=== PATIENT | male | born 1965 | race Caucasian/White ===

== ENCOUNTER → 2018-05-18 | Day surgery (SDC) | payer BC ==
[2018-05-17 10:04] VITALS: BMI 28.5
[~2018-05-18] MED LIST: LACTATED RINGERS 1,000 ML IV SCH; LIDOCAINE 1% 20 ML VIAL (10MG/ML) FOR IV START INTRADERMA ONE; LIDOCAINE 1% INJ 10MG/ML (20 ML MDV) ONE; PROPOFOL 10 MG/ML 20 ML VIAL IV ONE
[2018-05-18 11:22] VITALS: TEMP 98.1
--- NOTE | 2018-05-18 12:05 | P.PCN ---
Date of Procedure: 05/18/18 Procedure(s) Performed: BRIEF HISTORY: Patient is a 52-year-old pleasant male, scheduled for an elective colonoscopy as a part of screening for colorectal neoplasia. PROCEDURE PERFORMED: Colonoscopy. PREOPERATIVE DIAGNOSIS: Screening for colon cancer. IV sedation per Anesthesia. PROCEDURE: After informed consent was obtained, the patient, was brought into the endoscopy unit. IV sedation was administered by Anesthesia under continuous monitoring. Digital rectal examination was normal. Initially the Olympus CF- 160 flexible video colonoscope was then inserted in the rectum, gradually advanced into the cecum without any difficulty. Careful examination was performed as the scope was gradually being withdrawn. Ileocecal valve and the appendiceal orifice were visualized and appeared normal. Prep was excellent. Mucosa of the cecum, ascending colon, transverse colon, descending colon, sigmoid colon, and rectum appeared normal. Retroflexion was performed in the rectum and small internal hemorrhoids were seen. The patient tolerated the procedure well. IMPRESSION: Normal-appearing colon from rectum to cecum with no evidence of colorectal neoplasia . RECOMMENDATIONS: Findings of this examination were discussed with the patient as well as his family. He was advised to have a repeat screening colonoscopy in 10 years.
[2018-05-18 12:12] VITALS: RESP 16
[2018-05-18 12:19] VITALS: BP 124/65; PULSE 68
== END | disposition home or self-care (01) ==
LOC: ORWHC2ENDO 10:22
PROVIDERS: ATTEND Internal Medicine Gastroenterology
DX: Z12.11 Encounter for screening for malignant neoplasm of colon (principal); K64.8 Other hemorrhoids; K21.9 Gastro-esophageal reflux disease without esophagitis; Z79.899 Other long term (current) drug therapy
CPT/HCPCS: 45378; J2001; J2704

== ENCOUNTER 2020-11-22 21:18 | Emergency (ER) | payer BC ==
[2020-11-22 22:38] VITALS: RESP 18
--- NOTE | 2020-11-22 23:38 | XR ---
EXAMINATION TYPE: XR chest 2V DATE OF EXAM: 11/22/2020 COMPARISON: NONE HISTORY: Cough TECHNIQUE: 2 views FINDINGS: Heart and mediastinum are normal. Lungs are clear of infiltrate. There is no heart failure. There are no hilar masses. Bony thorax appears intact. IMPRESSION: No active cardiopulmonary disease. Normal heart.
[2020-11-23 00:04] VITALS: BP 149/72; PULSE 75; TEMP 100
--- NOTE | 2020-11-23 00:16 | ED ---
General Adult HPI - General Chief complaint: Shortness of Breath Stated complaint: COVID Source: patient, RN notes reviewed Mode of arrival: ambulatory Limitations: no limitations - History of Present Illness Initial comments: 55-year-old male with a past medical history of GERD, hiatal hernia presents to the emergency room for a chief complaint of shortness of breath. Patient states he developed symptoms of covid 6 days ago. States that 5 day ago he had a positive test. Patient states he has felt fine. His fevers have been getting better. However now when he deep breath he feels it gets to coughing. Coughing a little short of breath. Denies chest pain. Patient has no other complaints at this time including shortness of breath, chest pain, abdominal pain, nausea or vomiting, headache, or visual changes. - Related Data Home Medications Medication Instructions Recorded Confirmed Lansoprazole [Prevacid] 15 mg PO DAILY PRN 05/17/18 05/18/18 Previous Rx's Medication Instructions Recorded Albuterol Inhaler [Ventolin Hfa 2 puff INHALATION RT-QID PRN #1 11/23/20 Inhaler] inhaler Benzonatate [Tessalon Perles] 200 mg PO Q8H PRN #15 capsule 11/23/20 Allergies Allergy/AdvReac Type Severity Reaction Status Date / Time No Known Allergies Allergy Verified 11/22/20 22:39 Review of Systems ROS Statement: Those systems with pertinent positive or pertinent negative responses have been documented in the HPI. ROS Other: All systems not noted in ROS Statement are negative. Past Medical History Past Medical History: GERD/Reflux Additional Past Medical History / Comment(s): hiatal hernia, hx ulcer, History of Any Multi-Drug Resistant Organisms: None Reported Additional Past Surgical History / Comment(s): EGD, rt cataract Past Anesthesia/Blood Transfusion Reactions: Motion Sickness Past Psychological History: No Psychological Hx Reported Smoking Status: Never smoker Past Alcohol Use History: None Reported Past Drug Use History: None Reported - Past Family History Mother Family Medical History: No Reported History General Exam Limitations: no limitations General appearance: alert, in no apparent distress Head exam: Present: atraumatic, normocephalic, normal inspection Eye exam: Present: normal appearance, PERRL, EOMI. Absent: scleral icterus, conjunctival injection, periorbital swelling ENT exam: Present: normal exam, mucous membranes moist Neck exam: Present: normal inspection, full ROM. Absent: tenderness, meningismus, lymphadenopathy Respiratory exam: Present: normal lung sounds bilaterally. Absent: respiratory distress, wheezes, rales, rhonchi, stridor Cardiovascular Exam: Present: regular rate, normal rhythm, normal heart sounds. Absent: systolic murmur, diastolic murmur, rubs, gallop, clicks GI/Abdominal exam: Present: soft, normal bowel sounds. Absent: distended, tenderness, guarding, rebound, rigid Neurological exam: Present: alert Course Vital Signs 11/22/20 11/23/20 22:35 00:03 Temperature 100.9 F H 100 F H Pulse Rate 98 75 Respiratory 18 18 Rate Blood Pressure 169/82 149/72 O2 Sat by Pulse 97 95 Oximetry Medical Decision Making - Medical Decision Making Vitals are stable. Patient is well appearing. Saturations are 95-98%. Lungs are clear on oxygen auscultation. X-ray shows no active cardiopulmonary process. At this time. He'll be discharged from [facility]. He does not qualify for antibodies. He will return here for worsening symptoms. Disposition Clinical Impression: COVID-19 Disposition: HOME SELF-CARE Condition: Good Instructions (If sedation given, give patient instructions): Coronavirus Disease 2019 (COVID-19) Additional Instructions: Alternate motrin and tylenol every 3 hours as needed for fever. Take Tessalon Perles for cough. Use inhaler as needed up to 4 times a day. Please follow up with primary care. Return for any worsening symptoms. Prescriptions: Benzonatate [Tessalon Perles] 200 mg PO Q8H PRN #15 capsule PRN Reason: Cough Albuterol Inhaler [Ventolin Hfa Inhaler] 2 puff INHALATION RT-QID PRN #1 inhaler PRN Reason: Shortness Of Breath Is patient prescribed a controlled substance at d/c from ED?: No Referrals: Agustin Serna MD [Primary Care Provider] - 1-2 days Time of Disposition: 00:14
== END 2020-11-23 00:21 | disposition home or self-care (01) ==
LOC: EC 21:18
DX: U07.1 COVID-19 (principal); K21.9 Gastro-esophageal reflux disease without esophagitis
CPT/HCPCS: 71046; 99284

== ENCOUNTER 2023-08-04 07:47 | Day surgery (SDC) | payer BC ==
[2023-08-02 10:17] VITALS: BMI 30.7
[~2023-08-04 07:47] MED LIST changes: -LACTATED RINGERS 1,000 ML IV SCH; -LIDOCAINE 1% 20 ML VIAL (10MG/ML) FOR IV START INTRADERMA ONE; -LIDOCAINE 1% INJ 10MG/ML (20 ML MDV) ONE; -PROPOFOL 10 MG/ML 20 ML VIAL IV ONE; +SODIUM CHLORIDE 0.9% 1,000 ML IV SCH
[2023-08-04 08:57] VITALS: TEMP 97.7
[2023-08-04] MEDS ORDERED: LIDOCAINE 1% INJ 10MG/ML (20 ML MDV) ONE (09:00)
[2023-08-04] MEDS ORDERED: PROPOFOL 10 MG/ML 20 ML VIAL IV ONE (09:00)
[2023-08-04] MEDS ORDERED: BENZOCAINE SPRAY 1 CAN TOPICAL ONE (09:08)
--- NOTE | 2023-08-04 09:25 | P.PCN ---
Date of Procedure: 08/04/23 Description of Procedure: Indication: Atrial fibrillation Procedure Description: After explaining the procedure to the patient, it's risk and complications, blood pressure, heart rate and O2 saturation were monitored. The throat was sprayed with Cetacaine. Patient received sedation per anesthesia department. The probe was introduced into the esophagus without difficulty. Images were obtained. Following that, the probe was removed. There was no immediate complication. Findings: Left atrial size is mildly dilated, left atrial appendage is normal. Left ventricle size is normal. Mild global hypokinesis was noted. Ejection fraction is 45-50%. Aortic valve, mitral valve, and tricuspid valve are normal. The descending thoracic aorta appears to be normal. Contrast bubble study revealed no shunting across the interatrial septum. A eustachian valve was noted. No pericardial effusion was noted. Doppler: Pulse wave and color Doppler were obtained, revealed mild to moderate mitral with mild tricuspid regurgitation. There was no shunting by color Doppler study. Conclusion: 1. Mildly dilated left atrium with normal appearance of the left atrial appendage 2. Mild global hypokinesis of the left ventricle 3. Mild to moderate mitral with mild tricuspid regurgitation 4. No shunting across the interatrial septum 5. Normal appearance of the descending thoracic aorta PCI: After obtaining SCHUYLER and sedated state synchronized biphasic cardioversion using 150 J was performed with cheondoism of sinus mechanism. There was no immediate complications.
[2023-08-04 11:01] VITALS: BP 100/78; PULSE 51; RESP 18
[2023-08-04 15:41] LABS: African American GFR (CKD) 58 (>60 ml/min/1.73 sqM); Anion Gap 10 mmol/L; Blood Urea Nitrogen 23 mg/dL (9-20); Carbon Dioxide 26 mmol/L (22-30); Chloride 108 mmol/L (98-107); Glucose 99 mg/dL (74-99); Non-African American GFR(CKD) 50 (>60 ml/min/1.73 sqM); Potassium 4.3 mmol/L (3.5-5.1); Sodium 144 mmol/L (137-145)
[2023-08-04] MEDS ORDERED: RIVAROXABAN 20 MG TAB PO SCH (21:00)
[2023-08-04] MEDS ORDERED: METOPROLOL TARTRATE 50 MG TAB PO SCH (21:00)
== END 2023-08-04 11:31 | disposition home or self-care (01) ==
LOC: OR 07:47
PROVIDERS: ATTEND Internal Medicine Interventional Cardiology
DX: I08.1 Rheumatic disorders of both mitral and tricuspid valves (principal); I48.11 Longstanding persistent atrial fibrillation; I42.8 Other cardiomyopathies; Z79.01 Long term (current) use of anticoagulants; Z79.899 Other long term (current) drug therapy
CPT/HCPCS: 93312; 93320; 93325; 92960; 80048; J2001; J2704

== ENCOUNTER → 2024-07-20 | Outpatient (CLI) | payer BC ==
[2024-07-20 23:01] LABS: HCT 47.4 % (39.6-50.0); HGB 16.4 g/dL (13.0-17.0); MCH 31.2 pg (27.0-32.0); MCHC 34.6 g/dL (32.0-37.0); MCV 90.3 FL (80.0-97.0); Mean Platelet Volume 10.3 FL (9.5-12.2); NRBC Per 100 WBC 0 X 10*3/uL (0.00-0.01); Platelet Count 198 X 10*3/uL (140-440); RBC 5.25 X 10*6/uL (4.40-5.60); RDW 13.6 % (11.5-14.5); WBC 6.63 X 10*3/uL (4.50-10.00)
[2024-07-20 23:15] LABS: Blood Urea Nitrogen 17.2 mg/dL (9.0-27.0); Chloride 108 mmol/L (96-109); Potassium 4.9 mmol/L (3.5-5.5); Sodium 146 mmol/L (135-145)
== END | disposition home or self-care (01) ==
LOC: LABPAT 08:38
PROVIDERS: ATTEND Internal Medicine Clinical Cardiac Electrophysiology
DX: I48.0 Paroxysmal atrial fibrillation (principal)
CPT/HCPCS: 80051; 82565; 84520; 85027

== ENCOUNTER 2024-07-30 05:54 | Day surgery (SDC) | payer BC ==
[2024-07-30] MEDS: SODIUM CHLORIDE 0.9% 1,000 ML IV SCH (06:33)
[2024-07-30] MEDS: IV FLUID CONTINUATION 1,000 ML IV ONE (06:33)
[2024-07-30 06:43] LABS: Basophils % (A) 1 %; Eosinophils # (A) 0.1 k/uL (0-0.7); Eosinophils % (A) 1 %; HCT 48.4 % (39.0-53.0); HGB 16.3 gm/dL (13.0-17.5); Lymphocytes # (A) 2.4 k/uL (1.0-4.8); Lymphocytes % (A) 34 %; MCH 31.1 pg (25.0-35.0); MCHC 33.7 g/dL (31.0-37.0); MCV 92.2 fL (80.0-100.0); Mean Platelet Volume 7.5; Monocytes # (A) 0.4 k/uL (0-1.0); Monocytes % (A) 5 %; Neutrophils # (A) 4.1 k/uL (1.3-7.7); Neutrophils % (A) 57 %; Platelet Count 185 k/uL (150-450); RBC 5.25 m/uL (4.30-5.90); RDW 13.3 % (11.5-15.5); WBC 7.1 k/uL (3.8-10.6)
[2024-07-30 06:59] LABS: ALT 32 U/L (4-49); AST 27 U/L (17-59); African American GFR (CKD) 68 (>60 ml/min/1.73 sqM); Albumin 4.4 g/dL (3.5-5.0); Alkaline Phosphatase 56 U/L (38-126); Anion Gap 8 mmol/L; Blood Urea Nitrogen 19 mg/dL (9-20); Calcium 9.2 mg/dL (8.4-10.2); Carbon Dioxide 26 mmol/L (22-30); Chloride 108 mmol/L (98-107); Glucose 101 mg/dL (74-99); Non-African American GFR(CKD) 58 (>60 ml/min/1.73 sqM); Potassium 3.9 mmol/L (3.5-5.1); Sodium 142 mmol/L (137-145); Total Bilirubin 0.9 mg/dL (0.2-1.3); Total Protein 7.1 g/dL (6.3-8.2)
[2024-07-30] MEDS ORDERED: fentaNYL (PF) 50 MCG/ML 2 ML AMP IV PRN (07:00)
[2024-07-30] MEDS ORDERED: HEPARIN SODIUM,PORCINE 10,000 UNIT/ML 1 ML VIAL ONE (07:28)
[2024-07-30] MEDS ORDERED: PROPOFOL 10 MG/ML 20 ML VIAL IV ONE (07:28)
[2024-07-30] MEDS ORDERED: LIDOCAINE 1% INJ 10MG/ML (20 ML MDV) ONE (07:28)
[2024-07-30] MEDS ORDERED: SUCCINYLCHOLINE CHLORIDE 200 MG/10 ML VIAL IV ONE (07:28)
[2024-07-30] MEDS ORDERED: fentaNYL (PF) 50 MCG/ML 2 ML AMP ONE (07:28)
[2024-07-30] MEDS ORDERED: ISOPROTERENOL 250 MCG/1.25 ML SYR IV ONE (07:28)
[2024-07-30] MEDS ORDERED: MIDAZOLAM 2 MG/2 ML VIAL ONE (07:28)
[2024-07-30] MEDS ORDERED: ePHEDrine 50 MG/ML 1 ML VIAL ONE (07:28)
[2024-07-30] MEDS: HEPARIN SODIUM,PORCINE (1 ML) 2,500 UNIT in SODIUM CHLORIDE 0.9% 250 ML IRRIGATION ONE (07:41)
[2024-07-30] MEDS: HEPARIN SODIUM,PORCINE 10,000 UNIT in SODIUM CHLORIDE 0.9% 1,000 ML IRRIGATION ONE (07:41)
--- NOTE | 2024-07-30 08:09 | P.HPCAR ---
History of Present Illness This is Dr. Loyd dictating an H/P on this patient The patient was interviewed and examined IMPRESSION / ASSESSMENT: Paroxysmal atrial fibrillation, symptomatic since 2020 Despite medical treatment and lifestyle modification his episodes of A-fib continue Reduced LV systolic function of 47% Status post electrical cardioversion for atrial fibrillation in the past COVID related lung injury and scarring PLAN: A-fib ablation HPI Patient continues to have episodes of atrial fibrillation, paroxysmal mostly. He has had an electrical cardioversion in the past He has a mildly reduced LV systolic function of 47% History of COVID in 2020 and at that time his episodes of atrial fibrillation increased in frequency and duration He denies any fever chills cough expectoration lately. Denies any chest pain syncope undue shortness of breath, overall above his baseline ROS: No fever chills or rigors, no cough, phlegm or expectoration, no nausea, vomiting or diarrhea, no hematuria, dysuria, no musculoskeletal complaints, no strokes or seizures, no skin lesions. EXAMINATION: Pulse rate in the 70s blood pressure 134/68 mmHg afebrile Heart sounds S1-S2 normal regular Breath sounds are reduced bilaterally with there are no rhonchi no crackles No JVD No lower extremity edema Soft abdomen nontender REVIEW OF LABS, ECG & MEDICAL DATA White count 7.1 thousand, hemoglobin normal at 16.3 Platelet count 185,000 normal Normal electrolytes Creatinine 1.4 TSH normal at 1.5 Medications reviewed and include Xarelto 20 mg nightly, metoprolol succinate 50 mg daily and Prevacid Physical Exam Vitals: Vital Signs Temp Pulse Resp BP Pulse Ox 07/30/24 06:31 98.4 F 74 18 134/68 98 Intake and Output 07/29/24 07/30/24 07/30/24 22:59 06:59 14:59 Intake Total 100 0 Balance 100 0 Intake: IV 100 0 Other: Weight 98 kg Past Medical History Past Medical History: Atrial Fibrillation, Chest Pain / Angina, GERD/Reflux Additional Past Medical History / Comment(s): Hiatal hernia, hx ulcer, 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 Sob with activity. afib with covid and hearing loss. kidney functions mild issues. IBS. see Dr Loyd's H&P History of Any Multi-Drug Resistant Organisms: None Reported Additional Past Surgical History / Comment(s): EGD, rt cataract, sinus surgery, colonoscopy, Cardioversion x2 Past Anesthesia/Blood Transfusion Reactions: No Reported Reaction, Motion Sickness Additional Past Anesthesia/Blood Transfusion Reaction / Comment(s): no blood tranfusions Smoking Status: Former smoker - Past Family History Mother Family Medical History: No Reported History Additional Family Medical History / Comment(s): heart valve replaced on warfarin Father History Unknown: Yes Physical Examination Vital Signs Temp Pulse Resp BP Pulse Ox 07/30/24 06:31 98.4 F 74 18 134/68 98 Intake and Output 07/29/24 07/30/24 07/30/24 22:59 06:59 14:59 Intake Total 100 0 Balance 100 0 Intake: IV 100 0 Other: Weight 98 kg Results 07/30/24 06:15 07/30/24 06:15 Cardiac Enzymes 07/30/24 Range/Units 06:15 AST 27 (17-59) U/L CBC 07/30/24 Range/Units 06:15 WBC 7.1 (3.8-10.6) k/uL RBC 5.25 (4.30-5.90) m/uL Hgb 16.3 (13.0-17.5) gm/dL Hct 48.4 (39.0-53.0) % Plt Count 185 (150-450) k/uL Comprehensive Metabolic Panel 07/30/24 Range/Units 06:15 Sodium 142 (137-145) mmol/L Potassium 3.9 (3.5-5.1) mmol/L Chloride 108 H (98-107) mmol/L Carbon Dioxide 26 (22-30) mmol/L BUN 19 (9-20) mg/dL Creatinine 1.34 H (0.66-1.25) mg/dL Glucose 101 H (74-99) mg/dL Calcium 9.2 (8.4-10.2) mg/dL AST 27 (17-59) U/L ALT 32 (4-49) U/L Alkaline Phosphatase 56 (38-126) U/L Total Protein 7.1 (6.3-8.2) g/dL Albumin 4.4 (3.5-5.0) g/dL Current Medications Generic Name Dose Route Start Last Admin Trade Name Freq PRN Reason Stop Dose Admin Fentanyl Citrate 50 mcg 07/30/24 07:00 Fentanyl (Pf) 50 Mcg/Ml 2 Ml Amp IV 07/30/24 23:00 Q3M PRN Phase I - Pain Control Sodium Chloride 1,000 mls @ 20 mls/hr 07/30/24 05:59 07/30/24 06:33 Saline 0.9% IV 08/29/24 05:58 20 mls/hr .Q24H GABRIEL Administration Lactated Ringer's 1,000 mls @ 20 mls/hr 07/30/24 05:59 Lactated Ringers IV 08/29/24 05:58 .Q24H GABRIEL Intake and Output 07/29/24 07/30/24 07/30/24 22:59 06:59 14:59 Intake Total 100 0 Balance 100 0 Intake: IV 100 0 Other: Weight 98 kg 07/30/24 06:15 07/30/24 06:15
[2024-07-30] MEDS: HEPARIN SOD,PORK IN 0.45% NACL 25,000 UNIT in 0.45% NACL 1 250ML.BAG IV ONE (08:11)
[2024-07-30] MEDS: LIDOCAINE 1% INJ 10MG/ML (20 ML MDV) SQ ONE (08:13)
[2024-07-30] MEDS: IOPAMIDOL-370 100ML BTL INJ ONE (09:57)
[2024-07-30] MEDS ORDERED: PANTOPRAZOLE 40 MG TABLET PO PRN (10:10)
--- NOTE | 2024-07-30 10:23 | P.PRLE ---
RE: Juaquin Ramirez Dear Dr. Kim Ramirez underwent an A-fib ablation successfully with PVI and left atrial septal ablation. Following that we were not able to induce atrial fibrillation despite pacing maneuvers in the atrium and the coronary sinus both on and off Isopril Hopefully this results in significant reduction in his A-fib burden. He will continue Xarelto uninterrupted for the next 2 months Thank you for entrusting me with the care of the patient Warm regards Sincerely Kit Loyd
--- NOTE | 2024-07-30 10:35 | P.EPPROC ---
- EP Procedure Note Electrophysiology Procedure Note: PROCEDURE A. fib ablation DIAGNOSIS Paroxysmal atrial fibrillation, symptomatic, refractory to therapy RESULT No left atrial appendage mass seen on intracardiac echo, mild thickening of the pericardium, normal LV function on intracardiac echo Successful A. fib ablation/pulmonary vein isolation of all veins using cryo- ablation Complete entrance block in all 4 veins confirmed No evidence for phrenic nerve injury Left atrial septal ablation Esophageal deflection YES PROCEDURE DETAILS Written informed consent prior to procedure. Patient brought to the EP lab. General anesthesia given. Heparin administered. A city maintained above 300 seconds Both groins prepped and draped per protocol and venous sheaths placed. Esophagus intubated, circa catheter for temperature monitoring an endoscope for possible esophageal deflection. Phrenic nerve monitoring performed. Esophageal temperature monitoring performed. Esophageal deflection performed if circa catheter overlapping with the balloon or circa temperature less than 27.5C Intracardiac echocardiography performed. Pericardium evaluated. Left atrial appendage evaluated. Left atrium evaluated along with pulmonary veins Transseptal catheterization performed under fluoroscopic guidance and intracardiac echo guidance Cryoablation sheath exchanged, balloon catheter along with achieve catheter placed in the left atrium. Pulmonary veins isolated in the following sequence: Left superior pulmonary vein followed by left inferior pulmonary vein, followed by right inferior pulmonary vein and lastly right superior pulmonary vein. Phrenic nerve stimulation along with capture thresholds within the SVC and right superior pulmonary vein to identify the phrenic nerve proximity to the cryo- balloon. Pulmonary veins isolated and confirmed with entrance and exit block. Phrenic nerve integrity confirmed at the end of the procedure Ablation of the left atrial septum performed with cannulation of the superior branch of the right inferior and the inferior branch of the right superior vein to achieve ablation of the posterior septum of the left atrium. Ablation of electrograms confirmed. Additional lesion delivered outside the pulmonary veins, anteriorly on the antrum Diagnostic catheters for the high right atrium, His bundle, coronary sinus placed. LA and RA pressures recorded RA pressure: 11/0/6 LA pressure: 18/1/8 Diagnostic EP study with coronary sinus pacing and recording. High-dose Isopril infused Baseline measurements: Sinus cycle length 1076 ms, MS interval 161, QRS 101, QT 405 ms AH 50 ms, HV interval 41 ms Burst stimulation from the coronary sinus and from the high right atrium Extrastimulation from the coronary sinus No atrial fibrillation induced AV node Wenckebach block 380 ms Sinus node recovery times were 1378, 1331 and 948 ms Venous sheaths were removed and hemostasis assured with a closure device. 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 Despite excellent occlusion and excellent temperatures with the cryoballoon, delayed illumination of pulmonary vein potentials. Multiple shorter lesions with several cryo ablations both occlusive and around the antrum of this vein resulted in complete illumination of pulmonary vein potentials. This took extra time. In addition the left inferior pulmonary vein also was very large with 2 very large tributaries requiring independent isolation each for complete isolation. This also took additional time over and above the usual ablation PROCEDURES PERFORMED Diagnostic EP study CS pacing and recording Left and right transseptal catheterization Catheter the mapping of the tachycardia Intracardiac echocardiography Pulmonary vein isolation with transseptal and comprehensive EPS, 24820 Extended procedure duration Drug infusion, +23004 Linear ablation, left atrium septum, +24790
[2024-07-30] MEDS: HYDROmorphone 0.5 MG/0.5 ML SYRINGE IVP STA (10:51)
--- NOTE | 2024-07-30 14:13 | P.DS ---
Providers Attending physician: Kit Loyd Primary care physician: [facility] Course: Patient is doing well. No chest discomfort dizziness lightheadedness or palpitations. He had slight oozing in the right groin overnight but this is settled down. There is no hematoma no swelling No chest discomfort dizziness lightheadedness He has been ambulating around in the room and to the bathroom On examination, blood pressure 121/71 mmHg afebrile Breath sounds are clear no rhonchi no crackles Pulse rate is in the 60s and 70s. Patient is on nadolol 20 mg daily Groins of healed well no hematoma Impression Frequent PVCs. 1 PVC focus was consistent. Nonsustained VT was also noted at this site. Successful ablation was performed after high-density mapping He had other very frequent PVCs especially on Isopril but they were of varying morphologies/foci and not amenable to mapping Nadolol was started and he is tolerating this well Discharge home today Follow-up with Dr. Rosales Aspirin 81 mg daily for 1 month then stop Plan - Discharge Summary Discharge Rx Participant: No New Discharge Prescriptions: Continue RX: Lansoprazole [Prevacid] 15 mg PO DAILY PRN PRN Reason: acid reflux RX: Rivaroxaban [Xarelto] 20 mg PO HS RX: tadalafiL [Cialis] 5 mg PO DIRECTED PRN PRN Reason: E.D. Unk Vitamin B12 1 tab PO DAILY Unk Iron Supplement 1 tab PO DAILY RX: Cholecalciferol [Vitamin D3 (125 Mcg = 5000 Iu)] 125 mcg PO DAILY RX: traZODone HCL 100 mg PO HS PRN PRN Reason: Insomnia Unk Coq10 1 tab PO DAILY RX: tadalafiL [Cialis] 5 mg PO DAILY PRN MDD E.D. PRN Reason: See Comments Cequa 0.9 mg BOTH EYES BID RX: Metoprolol Succinate (ER) [Toprol XL] 50 mg PO DAILY RX: Dicyclomine [Bentyl] 10 mg PO TID Discharge Medication List RX: Lansoprazole [Prevacid] 15 mg PO DAILY PRN 05/17/18 [History] RX: Cholecalciferol [Vitamin D3 (125 Mcg = 5000 Iu)] 125 mcg PO DAILY 09/30/22 [History] RX: Rivaroxaban [Xarelto] 20 mg PO HS 09/30/22 [History] RX: tadalafiL [Cialis] 5 mg PO DAILY PRN MDD E.D. 09/30/22 [History] RX: traZODone HCL 100 mg PO HS PRN 09/30/22 [History] Unk Coq10 1 tab PO DAILY 09/30/22 [History] Cequa 0.9 mg BOTH EYES BID 08/02/23 [History] RX: Dicyclomine [Bentyl] 10 mg PO TID 07/23/24 [History] RX: Metoprolol Succinate (ER) [Toprol XL] 50 mg PO DAILY 07/23/24 [History] RX: tadalafiL [Cialis] 5 mg PO DIRECTED PRN 07/23/24 [History] Unk Iron Supplement 1 tab PO DAILY 07/23/24 [History] Unk Vitamin B12 1 tab PO DAILY 07/23/24 [History] Follow up Appointment(s)/Referral(s): Kit Loyd MD [STAFF PHYSICIAN] - As Needed (Follow-up with Dr. Vallejo in 1 week Do not stop Xarelto) Activity/Diet/Wound Care/Special Instructions: Post EP study - Ablation instructions 1. Keep access sites dry for 2 days. 2. No heavy lifting or straining for 2 days. 3. Avoid bending the hips repeatedly for 2 days. 4. You may go up and down stairs slowly 5. If you have had an ablation for atrial fibrillation or atrial flutter and are on a blood thinner, do not stop the blood thinner even temporarily for 3 months post ablation Call if the following is noted 1. Bleeding, increasing swelling or pain at the access sites. 2. Increasing chest discomfort, especially upon taking a deep breath. 3. Increasing shortness of breath, at rest or with exertion. 4. Undue cough / phlegm 5. Difficulty or pain while swallowing. 6. Pain or change in color in the extremities. 7. Fever, chills, rigors. 8. Increasing headache or neurologic symptoms. 9. Dizziness, fainting, palpitations For patients who have undergone an A-fib ablation /atrial flutter ablation Strict instruction; do NOT stop anticoagulation (Eliquis/Xarelto/Pradaxa) for the next 2 months temporarily, for any elective, nonurgent surgery. This increases the risk of stroke, post A-fib ablation Discharge Disposition: HOME SELF-CARE
[2024-07-30 14:38] VITALS: RESP 17
[2024-07-30] MEDS: LACTATED RINGERS 1,000 ML IV SCH (15:48)
[2024-07-30] MEDS: DEXAMETHASONE SOD PHOSPHATE 4 MG/ML 1 ML VIAL IV ONE (15:48)
[2024-07-30] MEDS: ONDANSETRON 4 MG/2 ML VIAL IVP ONE (15:50)
[2024-07-30] MEDS: ACETAMINOPHEN TAB 325 MG TAB PO PRN (21:06)
[2024-07-30] MEDS: RIVAROXABAN 20 MG TAB PO SCH (21:07)
[2024-07-31] MEDS: ACETAMINOPHEN IV (For NPO) 1,000 MG in EMPTY BAG 1 BAG IVPB ONE (02:24)
--- NOTE | 2024-07-31 08:35 | XR ---
EXAMINATION TYPE: XR chest 2V DATE OF EXAM: 07/31/2024 8:13 AM COMPARISON: 11/22/2020 CLINICAL INDICATION: Male, 59 years old with history of FEVER, , TECHNIQUE: Frontal and lateral views FINDINGS: Heart normal size. Aorta and pulmonary vasculature within normal limits. Mild interstitial prominence mid and lower lungs without consolidation or pleural effusion. IMPRESSION: Interstitial prominence in the mid and lower lungs could reflect bronchitis or asthma. [facility], , 07/31/2024 8:33 AM
[2024-07-31 09:22] LABS: HCT 45.4 % (39.0-53.0); HGB 15.7 gm/dL (13.0-17.5); MCH 32.2 pg (25.0-35.0); MCHC 34.6 g/dL (31.0-37.0); MCV 93.2 fL (80.0-100.0); Mean Platelet Volume 7.7; Platelet Count 167 k/uL (150-450); RBC 4.87 m/uL (4.30-5.90); RDW 13.3 % (11.5-15.5); WBC 9.5 k/uL (3.8-10.6)
[2024-07-31] MEDS: METOPROLOL SUCCINATE (ER) 50 MG TAB.ER.24H PO SCH (09:30)
[2024-07-31 10:41] LABS: Lymphocytes # (M) 1.62 k/uL (1.0-4.8); Monocytes # (M) 0.67 k/uL (0-1.0); Neutrophils # (M) 7.22 k/uL (1.3-7.7); Neutrophils % (M) 76 %; Nucleated Red Blood Cells 0 /100 WBC (0-0); Total Cells Counted 100
[2024-07-31 10:44] LABS: RBC Morphology Normal
[2024-07-31 15:48] VITALS: BP 122/72; PULSE 75; TEMP 98.8
== END 2024-07-31 17:50 | disposition home or self-care (01) ==
LOC: CATHEP 05:54 → 6NMEDSUR 09:57 → CATHEP 07-31 17:50
PROVIDERS: ATTEND Internal Medicine Clinical Cardiac Electrophysiology
DX: I48.0 Paroxysmal atrial fibrillation (principal); I20.9 Angina pectoris, unspecified; K21.9 Gastro-esophageal reflux disease without esophagitis; K58.9 Irritable bowel syndrome, unspecified; Z87.891 Personal history of nicotine dependence; Z86.16 Personal history of COVID-19; Z79.899 Other long term (current) drug therapy
CPT/HCPCS: 93623; 93656; 93657; 86900; 86901; 80053; 84443; 85025 ×2; 86850; 71046; J2250; J0330; J1644 ×3; J2003; J3010; J2704; J1171; Q9967

== ENCOUNTER → 2025-01-14 | Day surgery (SDC) | payer BC | LOC: OR 06:11 | PROVIDERS: ATTEND Internal Medicine Interventional Cardiology | DX: Z53.9 Procedure and treatment not carried out, unspecified reason (principal); I48.11 Longstanding persistent atrial fibrillation ==

== ENCOUNTER → 2025-03-11 | Outpatient (CLI) | payer BC ==
[2025-03-11 19:29] LABS: HCT 46.7 % (39.6-50.0); HGB 16.1 g/dL (13.0-17.0); MCH 31.1 pg (27.0-32.0); MCHC 34.5 g/dL (32.0-37.0); MCV 90.2 FL (80.0-97.0); NRBC Per 100 WBC 0 X 10*3/uL (0.00-0.01); Platelet Count 198 X 10*3/uL (140-440); RBC 5.18 X 10*6/uL (4.40-5.60); RDW 13.6 % (11.5-14.5); WBC 7.55 X 10*3/uL (4.50-10.00)
[2025-03-11 20:21] LABS: Anion Gap 11.30 mmol/L (4.00-12.00); Blood Urea Nitrogen 21.2 mg/dL (9.0-27.0); Carbon Dioxide 24.7 mmol/L (21.6-31.8); Chloride 109 mmol/L (96-109); Potassium 4.5 mmol/L (3.5-5.5); Sodium 145 mmol/L (135-145)
== END | disposition home or self-care (01) ==
LOC: LABWHC1 15:32
PROVIDERS: ATTEND Internal Medicine Clinical Cardiac Electrophysiology
DX: Z01.812 Encounter for preprocedural laboratory examination (principal); I48.11 Longstanding persistent atrial fibrillation
CPT/HCPCS: 80051; 82565; 84520; 85027

== ENCOUNTER 2025-03-18 09:04 | Day surgery (SDC) | payer BC ==
[2025-03-14 09:25] VITALS: BMI 30.7
[2025-03-18] MEDS: SODIUM CHLORIDE 0.9% 1,000 ML IV SCH (10:15)
[2025-03-18] MEDS ORDERED: GLYCOPYRROLATE 0.2 MG/ML 2 ML VIAL ONE (11:08)
[2025-03-18] MEDS ORDERED: HEPARIN SODIUM,PORCINE 10,000 UNIT/ML 1 ML VIAL ONE (11:08)
[2025-03-18] MEDS ORDERED: MIDAZOLAM 2 MG/2 ML VIAL ONE (11:08)
[2025-03-18] MEDS ORDERED: PHENYLEPHRINE-0.9% NACL SYG 1,000 MCG/10 ML SYRINGE ONE (11:08)
[2025-03-18] MEDS ORDERED: NEOSTIGMINE 1 MG/ML 10 ML VIAL ONE (11:08)
[2025-03-18] MEDS ORDERED: fentaNYL (PF) 50 MCG/ML 2 ML AMP ONE (11:08)
[2025-03-18] MEDS ORDERED: VASOPRESSIN 20 UNIT/ML 1 ML VIAL ONE (11:08)
[2025-03-18] MEDS ORDERED: ROCURONIUM 10 MG/ML (5 ML VIAL) IV ONE (11:08)
[2025-03-18] MEDS ORDERED: PROPOFOL 10 MG/ML 20 ML VIAL IV ONE (11:08)
[2025-03-18] MEDS ORDERED: LIDOCAINE 1% INJ 10MG/ML (20 ML MDV) ONE (11:08)
[2025-03-18] MEDS ORDERED: PHENYLEPHRINE 10 MG/ML VIAL ONE (11:08)
[2025-03-18] MEDS ORDERED: SUCCINYLCHOLINE CHLORIDE 200 MG/10 ML VIAL IV ONE (11:08)
[2025-03-18] MEDS ORDERED: HYDROmorphone (PF) 1 MG/ML ONE (11:08)
[2025-03-18] MEDS: IV FLUID CONTINUATION 900 ML IV ONE (11:12)
[2025-03-18] MEDS: HEPARIN SODIUM (1,000 UNIT/ML) 1,000 UNIT in SODIUM CHLORIDE 0.9% 1,000 ML IRRIGATION ONE (11:39)
[2025-03-18] MEDS: HEPARIN SOD,PORK IN 0.45% NACL 25,000 UNIT in 0.45% NACL 1 250ML.BAG IV ONE (11:40)
--- NOTE | 2025-03-18 11:57 | P.HPCAR ---
History of Present Illness This is Dr. Loyd dictating an H/P on this patient The patient was interviewed and examined IMPRESSION / ASSESSMENT: Persistent atrial fibrillation that is failed PVI and July 2024 He had a recurrence 6 months following successful PVI History of chronic pericarditis. PLAN: Proceed with left atrial ablation with redo PVI and linear ablation of the left atrium Ablation of any atrial tachycardias thereafter HPI Patient continues to remain in atrial fibrillation with RVR. His symptoms are mainly tiredness and fatigue. Denies any angina denies any syncope denies any fever chills cough expectoration or any pulmonary symptoms No lower extremity edema ROS: No fever chills or rigors, no cough, phlegm or expectoration, no nausea, vomiting or diarrhea, no hematuria, dysuria, no musculoskeletal complaints, no strokes or seizures, no skin lesions. EXAMINATION: 110/80 mmHg afebrile Breath sounds are clear no rhonchi no crackles Heart sounds are normal breath sounds are clear No JVD or hepatojugular reflux REVIEW OF LABS, ECG & MEDICAL DATA TSH 0.97 Physical Exam Vitals: Vital Signs Temp Pulse Resp BP BP Pulse Ox 03/18/25 10:16 98.9 F 94 18 99/78 110/80 100 Intake and Output 03/17/25 03/18/25 03/18/25 22:59 06:59 14:59 Other: Weight 98.3 kg Past Medical History Past Medical History: Atrial Fibrillation, GERD/Reflux Additional Past Medical History / Comment(s): Hiatal hernia, hx ulcer, 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 Sob with activity. afib with covid and hearing loss. kidney functions mild issues. History of Any Multi-Drug Resistant Organisms: None Reported Past Surgical History: Cardiac Ablation, EPS Additional Past Surgical History / Comment(s): EGD, rt cataract, sinus surgery, colonoscopy, Cardioversion 6 months. Past Anesthesia/Blood Transfusion Reactions: No Reported Reaction, Motion Sickness Additional Past Anesthesia/Blood Transfusion Reaction / Comment(s): no blood tranfusions Smoking Status: Former smoker - Past Family History Mother Family Medical History: No Reported History Additional Family Medical History / Comment(s): heart valve replaced on warfarin Father History Unknown: Yes Physical Examination Vital Signs Temp Pulse Resp BP BP Pulse Ox 03/18/25 10:16 98.9 F 94 18 99/78 110/80 100 Intake and Output 03/17/25 03/18/25 03/18/25 22:59 06:59 14:59 Other: Weight 98.3 kg Results Current Medications Generic Name Dose Route Start Last Admin Trade Name Joelle PRN Reason Stop Dose Admin Sodium Chloride 1,000 mls @ 20 mls/hr 03/18/25 06:28 03/18/25 10:15 Saline 0.9% IV 04/17/25 06:27 20 mls/hr .Q24H GABRIEL Administration Lactated Ringer's 1,000 mls @ 20 mls/hr 03/18/25 06:28 Lactated Ringers IV 04/17/25 06:27 .Q24H GABRIEL Intake and Output 03/17/25 03/18/25 03/18/25 22:59 06:59 14:59 Other: Weight 98.3 kg Patient Weight 03/19/25 06:59 Weight 98.3 kg
[2025-03-18] MEDS ORDERED: PANTOPRAZOLE 40 MG TABLET PO PRN (11:58)
[2025-03-18] MEDS ORDERED: ACETAMINOPHEN TAB 325 MG TAB PO PRN (11:59)
[2025-03-18] MEDS: LIDOCAINE 1% INJ 10MG/ML (20 ML MDV) SQ ONE (12:16)
[2025-03-18] MEDS: IOPAMIDOL-370 100ML BTL INJ ONE (14:07)
--- NOTE | 2025-03-18 14:41 | P.EPPROC ---
- EP Procedure Note Electrophysiology Procedure Note: PROCEDURE A. fib ablation with left atrial roof ablation, left atrial septal ablation and antral level pulmonary vein ablation DIAGNOSIS Persistent atrial fibrillation, symptomatic, refractory to therapy to ostial level PVI RESULT No left atrial appendage mass seen on intracardiac echo, thickened pericardium around LV, chronic pericarditis Successful A. fib ablation/pulmonary vein isolation of all veins using cryo- ablation Complete entrance block in all 4 veins confirmed No evidence for phrenic nerve injury Left atrial septal ablation Left atrial roof ablation Esophageal deflection NO Electrical cardioversion with a synchronized shock across the chest YES PROCEDURE DETAILS Written informed consent prior to procedure. Patient brought to the EP lab. General anesthesia given. Heparin administered. A city maintained above 300 seconds Both groins prepped and draped per protocol and venous sheaths placed. Esophagus intubated, circa catheter for temperature monitoring an endoscope for possible esophageal deflection. Phrenic nerve monitoring performed. Esophageal temperature monitoring performed. Esophageal deflection performed if circa catheter overlapping with the balloon or circa temperature less than 27.5°C Intracardiac echocardiography performed. Pericardium evaluated. Left atrial appendage evaluated. Left atrium evaluated along with pulmonary veins Patient remained persistently hypotensive following general anesthesia and despite pressors his blood pressure remained below 80 mmHg. Therefore he underwent electrical cardioversion successfully to sinus rhythm which improved his blood pressure by 10-20 mmHg points Transseptal catheterization performed under fluoroscopic guidance and intracardiac echo guidance Cryoablation sheath exchanged, balloon catheter along with achieve catheter placed in the left atrium. Pulmonary veins isolated in the following sequence: Left superior pulmonary vein followed by left inferior pulmonary vein, followed by right inferior pulmonary vein and lastly right superior pulmonary vein. Phrenic nerve stimulation along with capture thresholds within the SVC and right superior pulmonary vein to identify the phrenic nerve proximity to the cryo- balloon. Pulmonary veins isolated and confirmed with entrance and exit block. Phrenic nerve integrity confirmed at the end of the procedure Ablation of the left atrial roof performed with sequential lesions from the left superior to the right superior pulmonary veins. Ablation of the electrograms confirmed with voltage map Ablation of the left atrial septum performed with cannulation of the superior branch of the right inferior or the inferior branch of the right superior vein to achieve ablation of the posterior septum of the left atrium. Ablation of electrograms confirmed with 3D voltage mapping Electrical cardioversion performed for persistence of atrial fibrillation despite successful ablation. As described above Diagnostic catheters for the high right atrium, His bundle, coronary sinus placed. LA and RA pressures recorded LA pressure: Diagnostic EP study with coronary sinus pacing and recording Baseline measurements: QRS 112 ms, QT 352 ms, IL interval 127 ms AH 56, HV 48 ms High-dose Isopril infused Burst stimulation from the coronary sinus os from 500 ms down to 300 ms did not induce any atrial fibrillation Venous sheaths were removed and hemostasis assured with a closure device. Patient extubated and transferred to recovery PROCEDURES PERFORMED Diagnostic EP study CS pacing and recording Left and right transseptal catheterization Catheter the mapping of the tachycardia Intracardiac echocardiography Pulmonary vein isolation with transseptal and comprehensive EPS, [id number] Drug infusion, +[id number] Left atrial roof line, +[id number] Linear ablation, left atrium, +[id number] Electrical cardioversion with a synchronized shock across the chest [id number]
--- NOTE | 2025-03-18 14:45 | P.PRLE ---
RE: Juaquin Ramirez Dear Dear Jean Mr. Ramirez underwent redo A-fib ablation with entry-level pulmonary vein ablation, left atrial roof ablation and left atrial septal ablation. His prior ablations in July were durable and despite that he had a recurrence of A- fib. Thereafter on high-dose Isopril and with burst stimulation, we could not induce any further atrial fibrillation Hopefully this results in sinus rhythm for a prolonged period of time. If he has a recurrence of atrial fibrillation I would recommend dofetilide as an inpatient. If he has recurrence of any macro reentry or atrial tachycardia, I would pursue that with radiofrequency ablation. He will continue anticoagulation uninterrupted for the next 2 months to minimize stroke risk Thank you for entrusting me with the care of the patient Warm regards Sincerely Kit Loyd
[2025-03-18] MEDS: ONDANSETRON 4 MG/2 ML VIAL IVP STA (14:54)
[2025-03-18] MEDS: ACETAMINOPHEN IV (For NPO) 1,000 MG in EMPTY BAG 1 BAG IVPB ONE (16:32)
[2025-03-18] MEDS: LACTATED RINGERS 1,000 ML IV SCH (17:26)
[2025-03-18] MEDS: FUROSEMIDE 10 MG/ML 4 ML VIAL IV SCH (20:08)
[2025-03-18] MEDS: ONDANSETRON 4 MG/2 ML VIAL IVP PRN (20:54)
[2025-03-18] MEDS: RIVAROXABAN 20 MG TAB PO SCH (21:00)
[2025-03-19 02:20] VITALS: RESP 16
[2025-03-19] MEDS: METOPROLOL SUCCINATE (ER) 50 MG TAB.ER.24H PO SCH (08:10)
[2025-03-19 08:21] VITALS: PULSE 66; TEMP 98.4
[2025-03-19 09:15] VITALS: BP 87/55
[2025-03-19] MEDS: COLCHICINE 0.6 MG EACH PO ONE (09:37)
== END 2025-03-19 14:57 | disposition home or self-care (01) ==
LOC: CATHEP 09:04 → 6NMEDSUR 14:15 → CATHEP 03-19 14:57
PROVIDERS: ATTEND Internal Medicine Clinical Cardiac Electrophysiology
DX: I48.19 Other persistent atrial fibrillation (principal); K21.9 Gastro-esophageal reflux disease without esophagitis; Z86.16 Personal history of COVID-19; Z87.891 Personal history of nicotine dependence
CPT/HCPCS: 92960; 93623; 93656; 93657; 86900; 86901; 84443; 86850; C1759; C1894; C1769; C1760 ×3; C1730 ×2; C1731; C1733; C1766; J2405; J2003; J1644 ×2; J0131; Q9967; J1938